=== PATIENT | female | born 1965 | race African-American/Black ===

== ENCOUNTER 2024-11-30 16:29 | Emergency (ER) | payer MEDICAID ==
[~2024-11-30] VITALS: Ht 170.2 cm; Wt 59.0 kg
[2024-11-30 16:32] VITALS: O2SAT 98
[2024-11-30] MEDS: SODIUM CHLORIDE 0.9% 1,000 ML IV ONE (17:25)
[2024-11-30 17:30] LABS: BASOPHILS % 2.1 % (0.0-2.0); EOSINOPHILS % 2.5 % (0.0-5.0); HEMATOCRIT. 37.4 % (36.0-48.0); HEMOGLOBIN. 12.6 g/dL (12.0-16.0); LYMPHOCYTES % 50.6 % (20.0-50.0); MEAN PLATELET VOLUME 7.1 fl (7.4-10.4); MONOCYTES % 4.8 % (2.0-8.0); NEUTROPHILS % 40.0 % (40.0-76.0); PLATELET 257 x1000/uL (130-400); RED BLOOD CELL COUNT 3.86 mill/uL (4.2-5.4); RED CELL DISTRIBUTION WIDTH 14.3 % (11.6-14.6)
[2024-11-30 17:38] LABS: CREATININE 0.7 mg/dL (0.6-1.0)
[2024-11-30 17:39] LABS: ETHANOL BLOOD 124 mg/dL (<10); TROPONIN I HIGH SENSITIVITY < 4 ng/L (3.0-34); UREA NITROGEN BLOOD 6 mg/dL (9-23)
[2024-11-30 17:40] LABS: ASPARTATE AMINOTRANSFERASE 30 IU/L (<34)
[2024-11-30 17:41] LABS: BILIRUBIN DIRECT 0.1 mg/dL (<=3.0); BILIRUBIN TOTAL 0.5 mg/dL (0.1-1.0)
[2024-11-30 17:42] LABS: PROTEIN TOTAL 6.0 g/dL (6.0-8.3)
[2024-11-30 19:04] VITALS: BP 146/86; PULSE 91; RESP 20; TEMP 36.5; O2SAT 99
== END 2024-11-30 19:35 | disposition home or self-care (01) ==
LOC: ER 16:29
DX: I10 Essential (primary) hypertension (principal); J45.909 Unspecified asthma, uncomplicated; Z79.899 Other long term (current) drug therapy
CPT/HCPCS: 80076; 80048; 80320; 85025; 84484; 36415; 71045; 93005; 96360; 96361; 99285; J7030; G0480